=== PATIENT | male | born 1950 | race Caucasian/White ===

== ENCOUNTER 2018-06-23 14:26 | Observation (INO) | payer MEDICARE ==
[~2018-06-23] VITALS: Ht 195.6 cm; Wt 114.4 kg
--- OUTSIDE RECORDS SUMMARY | 2018-06-23 14:29 | XMS REPORT ---
Author Author [facility] Address Unknown Phone Unavailable Care Team Providers Care Newspaper Delivery Driver Name Role Phone RONNY YEPEZ Unavailable Unavailable FELIX OLMOS Unavailable Unavailable Problems This patient has no known problems. Allergies, Adverse Reactions, Alerts This patient has no known allergies or adverse reactions. Medications This patient has no known medications. Results Test Description Test Time Test Comments Text Results Atomic Results Result Comments CT, MAXILLOFACIAL AREA, WITHOUT IV CONTRAST 2018-06-23 13:20:00 FINAL REPORT Examination: CT Face without ContrastHistory: Nasal congestion. Sinus congestion.Comparison studies: None Technique:Axial images were obtained through the maxillofacial region. Coronal and sagittal reconstructions obtained from the axial data. Dose modulation, iterative reconstruction, and/or weight based adjustment of the mA/kV was utilized to reduce the radiation dose to as low as reasonably achievable. Intravenous contrast: None Findings: Soft tissues: No abnormalities. Bones: No fractures or bony abnormalities. Orbits: Globes: IntactExtra or intraconal abnormalities: None. Paranasal sinuses:Mild inflammatory mucosal thickening of the right ethmoid air cells.Mild inflammatory mucosal thickening of the anterior right sphenoid sinus which narrows the right sphenoethmoidal recess, which remains patent. Nasal cavity:Aerated right middle turbinate.Mild leftward curvature of the nasal septum (2 mm). IMPRESSION: 1.Mild inflammatory mucosal thickening of the right ethmoid air cells and right sphenoid sinus with patent right sphenoethmoidal recess. 2.Mild leftward curvature of the nasal septum (2 mm). Signed: Sierra Sharma Verified Date/Time: 06/23/2018 13:20:26 Reading Location: [facility] Room [address] [place] [address] UE EXAM 2018-01-09 10:43:00 Surgical Pathology Report Case: [id number] Authorizing Provider: Maylin Rick Ronny Collected: 01/08/2018 1033 Ord ering Location: [facility] Received: 01/08/2018 1133 SERVICES Pathologist: Jennifer Calloway MD Specimens: A) - Polyp, Colon - Cecum B) - Polyp, Colon - Right/Ascending A. LARGE BOWEL, CECUM, POLYPECTOMY: - TUBULAR ADENOMA B. COLON, RIGHT, POLYPECTOMY: - FECAL MATERIAL Signing Pathologist Direct Phone Line: [phone] signed by Jennifer Calloway MD on 01/09/2018 at 10:43 AMNZ/ew [id number] for colon cancer A. Cecum colon polyp. B. Right ascending colon polyp Specimen is received in two containers of formalin both labeled with the patient's information.Specimen A: Labeled "cecum colon polyp" consists of two fragments of juárez tissue measuring 0.3 and 0.8 cm, submitted in A1.Specimen B: Labeled "right ascending colon polyp" consists of multiple fragments of debris with no distinct tissue seen grossly. The debris ranges from 0.1 to 0.6 cm, submitted in B1. CG/ew A-B. No high-grade dysplasia or carcinoma is seen. TISSUE EXAM 2016-11-26 19:06:00 Surgical Pathology Report Case: [id number] Authorizing Provider: Felix Olmos MD Collected: 11/21/2016 1306 Ord ering Location: [facility] PERIOPERATIVE Received: 11/21/2016 1536 SERVICES Pathologist: Francesca Maldonado MD Specimen: Cyst, Perianal cyst PERINEAL REGION, BIOPSY: - SMOOTH MUSCLE AND GIANT CELL REACTIVE CHANGES, FOCALLY TO KERATINOUS MATERIAL, CONSISTENT WITH PERINEAL ABSCESS REGION CYST (SEE MICROSCOPIC DIAGNOSIS)MO/pl A definitive cyst or abscess is not noted. See microscopic description and diagnostic sections.[id number] abscess, perianal cystPerianal cystReceived in formalin labeled "mass" are four irregular, dark-red, rubbery, wrinkled fragments of soft tissue measuring 2.0 x 1.5 x 0.2 cm in aggregate. The specimen is entirely submitted in cassette A1. DB/ewThe perineal mass shows muscle, mostly smooth muscle, and connective tissue. There are some giant cells, focally surrounding some keratinous material consistent with perineal origin. No mucosal surface or atypia of any type is noted. A definitive abscess is not noted either. However, the reactive changes including the giant cells may be associated with a prior and/or contiguous abscess in this case.
--- OUTSIDE RECORDS SUMMARY | 2018-06-23 14:29 | XMS REPORT | Clinical Summary ---
Author Author SINAN [facility] Address Unknown Phone Unavailable Care Team Providers Care Mine Technician Name Role Phone Kota White MD PCP Allergies No Known Allergies Medications End Date Status Medication Sig Dispensed Refills Start Date Active valsartan (DIOVAN) 80 MG Take 80 mg by 0 tablet mouth daily. Active lovastatin (MEVACOR) 40 Take 40 mg by 0 MG tablet mouth nightly. Active omeprazole (PRILOSEC) 40 Take 40 mg by 0 MG capsule mouth daily. Active testosterone (ANDROGEL) 1 Place 1 0 % (50 mg/5 gram) GlPk packet onto topical gel the skin daily. Active gabapentin (NEURONTIN) Take 100 mg 0 100 MG capsule by mouth 3 (three) times daily. Active Problems Not on file Encounters Care Team Description Date Type Specialty Kota White MD 1, [facility] Room Chronic maxillary sinusitis 06/20/2018 Hospital Computed Tomography Encounter Kota White MD Chronic maxillary sinusitis (Primary Dx) 06/18/2018 Outside Orders Central Scheduling Cyndi June MD 01/08/2018 Anesthesia Event Maylin Rickbharat [place] COLONOSCOPY,POLYPECTOMY 01/08/2018 Surgery Rick Carlisle 01/08/2018 Hospital Encounter Resource, Oqmt Preadmit Phone 01/03/2018 Hospital Pre-Admission Testing Encounter after 06/22/2017 Social History Date Tobacco Use Types Packs/Day Years Used Never Smoker Smokeless Tobacco: Never Used Alcohol Use Drinks/Week oz/Week Comments Yes 42 Cans of 25.2 6 PK PER DAY beer Sex Assigned at Date Recorded Not on file Industry Job Start Date Occupation Not on file Not on file Not on file Travel End Travel History Travel Start No recent travel history available. Last Filed Vital Signs Time Taken Vital Sign Reading 01/08/2018 11:00 AM CDT Blood Pressure 145/75 01/08/2018 11:00 AM CDT Pulse 65 01/08/2018 11:00 AM CDT Temperature 36.4 C (97.6 F) 01/08/2018 11:00 AM CDT Respiratory Rate 10 01/08/2018 11:00 AM CDT Oxygen Saturation 99% - Inhaled Oxygen - Concentration 01/08/2018 8:00 AM CDT Weight 108.9 kg (240 lb 1.6 oz) 01/08/2018 8:00 AM CDT Height 195.6 cm (6' 5") 01/08/2018 8:00 AM CDT Body Mass Index 28.47 Plan of Treatment Not on file Procedures Comments Procedure Name Priority Date/Time Associated Diagnosis CT MAXILLOFACIAL WITHOUT Routine 06/20/2018 Chronic maxillary IV CONTRAST 3:00 PM SEAM HAMMERER sinusitis REPORT OF PROCEDURE - 01/08/2018 ENDOSCOPY URL 10:56 AM CDT TISSUE EXAM AP Routine 01/08/2018 10:33 AM CDT COLONOSCOPY,POLYPECTOMY 01/08/2018 Screening for colon 10:00 AM CDT cancer after 06/22/2017 Results * CT Maxillofacial without IV Contrast (06/20/2018 3:00 PM SEAM HAMMERER) Narrative Performed At FINAL REPORT TLabs Examination: CT Face without Contrast History: Nasal congestion. Sinus congestion. Comparison studies: None Technique: Axial images were obtained through the maxillofacial region. Coronal and sagittal reconstructions obtained from the axial data. Dose modulation, iterative reconstruction, and/or weight based adjustment of the mA/kV was utilized to reduce the radiation dose to as low as reasonably achievable. Intravenous contrast: None Findings: Soft tissues: No abnormalities. Bones: No fractures or bony abnormalities. Orbits: Globes: Intact Extra or intraconal abnormalities: None. Paranasal sinuses: Mild inflammatory mucosal thickening of the right ethmoid air cells. Mild inflammatory mucosal thickening of the anterior right sphenoid sinus which narrows the right sphenoethmoidal recess, which remains patent. Nasal cavity: Aerated right middle turbinate. Mild leftward curvature of the nasal septum (2 mm). IMPRESSION: 1.Mild inflammatory mucosal thickening of the right ethmoid air cells and right sphenoid sinus with patent right sphenoethmoidal recess. 2.Mild leftward curvature of the nasal septum (2 mm). Signed: Sierra Sharma MD Report Verified Date/Time:06/23/2018 13:20:26 Reading Location: [facility] Room [address] [place] [address] Procedure Note Interface, External Ris In - 06/23/2018 1:22 PM SEAM HAMMERER FINAL REPORT Examination: CT Face without Contrast History: Nasal congestion. Sinus congestion. Comparison studies: None Technique: Axial images were obtained through the maxillofacial region. Coronal and sagittal reconstructions obtained from the axial data. Dose modulation, iterative reconstruction, and/or weight based adjustment of the mA/kV was utilized to reduce the radiation dose to as low as reasonably achievable. Intravenous contrast: None Findings: Soft tissues: No abnormalities. Bones: No fractures or bony abnormalities. Orbits: Globes: Intact Extra or intraconal abnormalities: None. Paranasal sinuses: Mild inflammatory mucosal thickening of the right ethmoid air cells. Mild inflammatory mucosal thickening of the anterior right sphenoid sinus which narrows the right sphenoethmoidal recess, which remains patent. Nasal cavity: Aerated right middle turbinate. Mild leftward curvature of the nasal septum (2 mm). IMPRESSION: 1.Mild inflammatory mucosal thickening of the right ethmoid air cells and right sphenoid sinus with patent right sphenoethmoidal recess. 2.Mild leftward curvature of the nasal septum (2 mm). Signed: Sierra Sharma MD Report Verified Date/Time: 06/23/2018 13:20:26 Reading Location: [facility] Room [address] [place] [address] Performing Organization Address City/State/Zipcode Phone Number RIS * REPORT OF PROCEDURE - ENDOSCOPY URL (01/08/2018 10:56 AM CDT) Narrative Performed At * Tissue Exam (01/08/2018 10:33 AM CDT) Case Report Surgical Pathology [facility] Case: [id number] Authorizing Provider:Rick Carlisleected: 01/08/2018 1033 Ordering Location: [facility] ENDOSCOPY Received: 01/08/2018 1133 SERVICES Pathologist: Jennifer Calloway MD Specimens: A) - Polyp, Colon - Cecum B) - Polyp, Colon - Right/Ascending DIAGNOSIS A. LARGE BOWEL, CECUM, [facility] POLYPECTOMY: [facility] - TUBULAR ADENOMA B. COLON, RIGHT, POLYPECTOMY: - FECAL MATERIAL Signing Pathologist Direct Phone Line: [phone] CPT Code(s) NZ/ew [facility] [address] x2 [facility] CLINICAL HISTORY Screening for colon cancer [facility] SPECIMEN SOURCE A. Cecum colon polyp. B. Right [facility] ascending colon polyp [facility] GROSS DESCRIPTION Specimen is received in two [facility] containers of formalin both [facility] labeled with the patient's information. Specimen A: Labeled "cecum colon polyp" consists of two fragments of juárez tissue measuring 0.3 and 0.8 cm, submitted in A1. Specimen B: Labeled "right ascending colon polyp" consists of multiple fragments of debris with no distinct tissue seen grossly. The debris ranges from 0.1 to 0.6 cm, submitted in B1. CG/ew MICROSCOPIC DESCRIPTION A-B. No high-grade dysplasia [facility] or carcinoma is seen. [facility] Specimen Tissue - Polyp, Colon - Cecum Performing Organization Address City/State/Zipcode Phone Number [facility] [address] [place], [place] [id number] [facility] after 06/22/2017 Insurance Payer Benefit Subscriber ID Type Phone Address Plan / Group MEDICARE MEDICARE A xxxxxxxxxx Medicare B MCR SUPPLEMENT/INDIVIDUAL AARP/UNITE xxxxxxxxxxx Medigap D HEALTHCARE
[2018-06-23 15:32] LABS: BASOPHILS % 0.5 % (0.0-1.0); EOSINOPHILS # (AUTO) 0.1 (0.0-0.4); HEMATOCRIT 45.3 % (38.2-49.6); HEMOGLOBIN 15.3 g/dL (14.0-18.0); LYMPHOCYTES # (AUTO) 1.9 (1.0-3.2); LYMPHOCYTES % 30.2 % (18.0-39.1); MEAN CORPUSCULAR HEMOGLOBIN 31.4 pg (28-32); MEAN CORPUSCULAR HGB CONC 33.8 g/dL (31-35); MONOCYTES # (AUTO) 0.5 (0.2-0.8); MONOCYTES % 7.2 % (4.4-11.3); NEUTROPHILS # (AUTO) 3.8 (2.1-6.9); NEUTROPHILS % 59.6 % (38.7-80.0); PLATELET COUNT 213 x10e3/uL (140-360); RED BLOOD COUNT 4.87 x10e6/uL (4.3-5.7); RED CELL DISTRIBUTION WIDTH 12.5 % (11.7-14.4)
[2018-06-23 15:45] LABS: INR 0.85; PROTHROMBIN TIME 12.4 seconds (11.9-14.5)
[2018-06-23 15:46] LABS: PARTIAL THROMBOPLASTIN TIME 23.9 seconds (23.8-35.5)
[2018-06-23 15:56] LABS: ALANINE AMINOTRANSFERASE 43 IU/L (0-55); ALBUMIN 4.1 g/dL (3.5-5.0); ALBUMIN/GLOBULIN RATIO 1.3 (0.8-2.0); ALKALINE PHOSPHATASE 49 IU/L (40-150); ANION GAP 14.4 mmol/L (8-16); BLOOD UREA NITROGEN 14 mg/dL (7-26); BUN/CREATININE RATIO 14 (6-25); CALCIUM 9.7 mg/dL (8.4-10.2); CARBON DIOXIDE 24 mmol/L (22-29); CHLORIDE 105 mmol/L (98-107); EST GLOMERULAR FILTRATION RATE > 60 ML/MIN (60-); GLUCOSE 106 mg/dL (74-118); POTASSIUM 3.4 mmol/L (3.5-5.1); SODIUM 140 mmol/L (136-145)
--- NOTE | 2018-06-23 17:08 | Diagnostic Imaging Report ---
CT BRAIN WO HISTORY: Headache, vision changes COMPARISON: None. TECHNIQUE: Noncontrast axial scans were obtained from skull base to the vertex. Coronal and sagittal reconstructions obtained from the axial data. One or more of the following dose reduction techniques were used: Automated exposure control, adjustment of the mA and/or kV according to patient size, and/or utilization of iterative reconstruction technique. Beam hardening artifacts obscure some details. DISCUSSION: Scalp/Skull: Unremarkable. Brain sulci: Appropriate for patient's age. Ventricles: Normal in size and configuration. No hydrocephalus. Extra-axial spaces: No masses or fluid collections. Carotid siphon calcifications are present. Parenchyma: Focal loss of pagan-white differentiation at the right occipital pole may be due to subacute or acute ischemia. There is also focal hypodensity in the left subinsular region may be due to age indeterminate ischemia. Small focal hypodensities in the bilateral putamen may be due to prominent perivascular spaces. Mild periventricular white matter hypodensities are likely chronic microvascular ischemic changes. Otherwise, no masses, hemorrhage, or other large vascular territory acute infarct. Dural sinuses: No abnormal densities. Sellar/Suprasellar region: Intact. Skull base: Intact. Incidental findings: There is minimal mucosal thickening in the right ethmoid air cells IMPRESSION: 1. Findings suspicious for acute or subacute juxtacortical ischemia at the right occipital pole. 2. Focal left subinsular hypodensity may be due to age indeterminate ischemia. 3. Mild supratentorial chronic microvascular ischemic change. 4. Small bilateral putaminal hypodensities may be prominent perivascular spaces. Signed by: Dr. Sidney Bernard M.D. on 06/23/2018 5:05 PM
--- NOTE | 2018-06-23 17:14 | Diagnostic Imaging Report ---
CT MAXIO FAC/PARANAS WO HISTORY: Headache COMPARISON: Concurrent head CT TECHNIQUE: Axial CT images through the face were obtained without contrast. Coronal/sagittal reformations were created. One or more of the following dose reduction techniques were used: Automated exposure control, adjustment of the mA and/or kV according to patient size, and/or utilization of iterative reconstruction technique. DISCUSSION: Mildly displaced bilateral nasal bone fractures may be old. Otherwise, no acute fracture is seen. There are mild to moderate degenerative changes throughout the spine. Mild bilateral torus mandibularis is present. There are mild to moderate degenerative changes in the left temporomandibular joint. The orbits are intact. Intraorbital contents are grossly unremarkable. There is minimal mucosal thickening in the right ethmoid air cells, and right maxillary sinus. The paranasal sinuses are otherwise grossly clear. Please refer to concurrent head CT for intracranial findings. Mild bilateral carotid bulb calcifications are present. IMPRESSION: 1. Mildly displaced bilateral nasal bone fractures may be old. 2. Otherwise, no acute osseous abnormality. 3. Minimal right ethmoid air cell and right maxillary sinus mucosal thickening. Signed by: Dr. Sidney Bernard M.D. on 06/23/2018 5:10 PM
--- NOTE | 2018-06-23 20:48 | NUR ---
Vitals re-assessed at this time. Abnormal. Dr. Hawkins evaluating pt. Pt to be roomed in ER 8
[2018-06-23] MEDS ORDERED: ONDANSETRON HCL INJ 2MG/ML 2ML 2 MG/ML VIAL IV PRN (21:15)
[2018-06-23] MEDS ORDERED: HYDROCODONE/APAP 5MG-325MG TAB PO ONE (21:15)
[2018-06-23] MEDS ORDERED: MORPHINE SULFATE 2 MG/ML SYR 1ML IV PRN (21:15)
[2018-06-23] MEDS ORDERED: HYDROCODONE/APAP 5MG-325MG TAB ONE (21:20)
[2018-06-23] MEDS: SODIUM CHLORIDE 0.9% 1000ML 1,000 ML IV SCH (21:25)
--- OUTSIDE RECORDS SUMMARY | 2018-06-23 21:29 | XMS REPORT | Clinical Summary ---
Author Author [facility] Address Unknown Phone Unavailable Care Team Providers Care Tile Applicator Name Role Phone Kota White MD PCP [...] Date Type Specialty Kota White MD 1, [facility] [address] Room Chronic maxillary sinusitis 06/20/2018 Hospital [...] 06/20/2018 Chronic maxillary IV CONTRAST 3:00 PM SYS DIR sinusitis REPORT OF PROCEDURE - 01/08/2018 ENDOSCOPY URL 10:56 AM CDT TISSUE EXAM AP Routine 01/08/2018 10:33 AM CDT COLONOSCOPY,POLYPECTOMY 01/08/2018 Screening for colon 10:00 AM CDT cancer after 06/22/2017 Results * CT Maxillofacial without IV Contrast (06/20/2018 3:00 PM SYS DIR) Narrative Performed At FINAL REPORT Multigig Examination: CT Face without Contrast History: Nasal [...] MD Report Verified Date/Time:06/23/2018 13:20:26 Reading Location: [facility] [employer] Reading Room [address] [place] [address] Procedure Note Interface, External Ris In - 06/23/2018 1:22 PM SYS DIR FINAL REPORT Examination: CT Face without Contrast [...] Date/Time: 06/23/2018 13:20:26 Reading Location: [facility] [facility] Room [address] [place] [address] Performing Organization Address City/State/Zipcode Phone Number RIS * REPORT OF PROCEDURE - ENDOSCOPY URL (01/08/2018 10:56 AM CDT) Narrative Performed At * Tissue Exam (01/08/2018 10:33 AM CDT) Case Report Surgical Pathology [facility] Case: [id number] Authorizing Provider:Rick Carlisleected: 01/08/2018 1033 Ordering Location: [facility] ENDOSCOPY Received: 01/08/2018 1133 SERVICES Pathologist: Jennifer Calloway MD Specimens: A) - Polyp, Colon - Cecum B) - Polyp, Colon - Right/Ascending DIAGNOSIS A. LARGE BOWEL, CECUM, [facility] POLYPECTOMY: [facility] - TUBULAR ADENOMA B. COLON, RIGHT, POLYPECTOMY: - FECAL MATERIAL Signing Pathologist Direct Phone Line: [phone] CPT Code(s) NZ/ew [facility] [address] x2 [facility] CLINICAL HISTORY Screening for colon cancer [facility] SPECIMEN SOURCE A. Cecum colon polyp. B. Right [facility] ascending colon polyp [facility] GROSS DESCRIPTION Specimen is received in two [facility] containers of formalin both [facility] labeled with the patient's information. Specimen [...] CG/ew MICROSCOPIC DESCRIPTION A-B. No high-grade dysplasia [facility] or carcinoma is seen. [facility] Specimen Tissue - Polyp, Colon - Cecum Performing Organization Address City/State/Zipcode Phone Number [facility] [address] [place], [place] [id number] MEDICAL [facility]ENTER after 06/22/2017 Insurance Payer Benefit Subscriber ID Type Phone Address Plan / Group MEDICARE MEDICARE A xxxxxxxxxx Medicare B MCR SUPPLEMENT/INDIVIDUAL AARP/UNITE xxxxxxxxxxx Medigap D HEALTHCARE
[2018-06-23] MEDS ORDERED: MORPHINE SULFATE INJ 4 MG/ML INJ 1ML IV PRN (21:30)
[2018-06-23] MEDS ORDERED: POTASSIUM CHLORIDE 20 MEQ TAB CR PO STA (23:35)
[2018-06-23 23:45] VITALS: BP 152/70
--- NOTE | 2018-06-23 23:45 | NUR ---
patient is a new admit that arrived via wheelchair. patient is awake and talking. patient has been helped into the bed. bed is in the lowest position and call albarado is within reach. will continue to monitor patient.
[2018-06-24] VITALS (7 sets, daily range): BP systolic 136–163; BP diastolic 64–75
[2018-06-24] MEDS ORDERED: DIOVAN80 MG PO (03:22)
[2018-06-24] MEDS ORDERED: LOVASTATIN40 MG PO (03:22)
[2018-06-24] MEDS ORDERED: MELOXICAM7.5 MG PO (03:22)
[2018-06-24] MEDS ORDERED: GABAPENTIN300 MG PO (03:22)
[2018-06-24 05:25] LABS: BASOPHILS % 0.5 % (0.0-1.0); EOSINOPHILS # (AUTO) 0.1 (0.0-0.4); EOSINOPHILS % 2.5 % (0.0-6.0); HEMATOCRIT 39.2 % (38.2-49.6); HEMOGLOBIN 13.1 g/dL (14.0-18.0); LYMPHOCYTES # (AUTO) 2.5 (1.0-3.2); LYMPHOCYTES % 43.8 % (18.0-39.1); MEAN CORPUSCULAR HEMOGLOBIN 31.4 pg (28-32); MEAN CORPUSCULAR HGB CONC 33.4 g/dL (31-35); MONOCYTES # (AUTO) 0.5 (0.2-0.8); MONOCYTES % 9.2 % (4.4-11.3); NEUTROPHILS # (AUTO) 2.5 (2.1-6.9); NEUTROPHILS % 43.5 % (38.7-80.0); PLATELET COUNT 198 x10e3/uL (140-360); RED BLOOD COUNT 4.17 x10e6/uL (4.3-5.7); RED CELL DISTRIBUTION WIDTH 12.7 % (11.7-14.4)
[2018-06-24 05:36] LABS: CREATINE KINASE MB 0.3 ng/mL (0-5.0)
[2018-06-24 06:16] LABS: CREATINE KINASE MB 0.3 ng/mL (0-5.0)
--- NOTE | 2018-06-24 06:34 | NUR ---
Consulted physician has been notified of routine consultation. physician will be in to see patient later in the day.
[2018-06-24 06:38] LABS: ANION GAP 10.8 mmol/L (8-16); BLOOD UREA NITROGEN 16 mg/dL (7-26); BUN/CREATININE RATIO 18 (6-25); CALCIUM 8.5 mg/dL (8.4-10.2); CARBON DIOXIDE 27 mmol/L (22-29); CHLORIDE 109 mmol/L (98-107); CHOL/HDL RATIO 4.4 (3.9-4.7); CHOLESTEROL 164 MD/DL (0-199); CREATININE, SERUM 0.88 mg/dL (0.72-1.25); EST GLOMERULAR FILTRATION RATE > 60 ML/MIN (60-); GLUCOSE 108 mg/dL (74-118); HDL CHOLESTEROL 37 MG/DL (40-60); LDL CHOLESTEROL 92 MG/DL (60-130); POTASSIUM 4.8 mmol/L (3.5-5.1); SODIUM 142 mmol/L (136-145); TRIGLYCERIDES 176 MG/DL (0-149)
[2018-06-24] MEDS: SODIUM CHLORIDE 0.9% 1000ML 1,000 ML IV SCH ×3 (08:06→19:54)
[2018-06-24] MEDS: ASPIRIN 81 MG ENTERIC COATED PO SCH (09:43)
--- NOTE | 2018-06-24 09:43 | NUR ---
PT RECEIVED SITTING UP IN BED, AA/O X3. NO C/O AT PRESENT. REPORTS VISION IS DISTURBED BUT DENIES PAIN, HEADACHE, OR WEAKNESS. ASSESSMENT COMPLETE, VSS. PT HAS NO IV IN PLACE, MD AWARE. DISCUSSED PLAN FOR THE DAY. Addendum: 06/24/18 at 1314 by Robbie Lowery RN ERROR, PT HAS IV TO LAC
--- NOTE | 2018-06-24 11:27 | NUR ---
SOCIAL WORK INITIAL ASSESSMENT Rougher Operator to bedside to discuss plan of care with patient/family. CM/SW role and care transitions discussed. Anticipated discharge plan discussed along with duration of care. CM/SW discussed patients right to make decisions in care. CM/SW work hours given. Patient lives: IN OWN HOUSE WITH SON Admit/Transfer: VIA HOME POA/Emergency contact: [place] [phone] Current/Previous Home Health: NONE PCP/Follow-up Care: CATHERINE AT [facility] Current/Previous DME: NONE Other Services: NONE Employment Status: RETIRED Areas of Concerns: NONE Referral Needs: NONE Education Needs: NONE IMM/JAY given and signed (if applicable): JAY Goal for discharge: RETURN HOME INDEPENDENTLY CM/SW left business card at the bedside with contact information. Name and number was also written on the patients whiteboard. Patient verbalized understanding of discussion. CM will follow-up with ongoing discharge and transition of care needs.
[2018-06-24] MEDS ORDERED: LORAZEPAM INJ 2 MG/ML VIAL IV ONE (12:15)
--- NOTE | 2018-06-24 12:15 | NUR ---
PT SEEN BY DR RANKIN, NEW ORDERS NOTED.
--- NOTE | 2018-06-24 12:30 | NUR ---
PT DOWN FOR MRI OF BRAIN
--- NOTE | 2018-06-24 12:40 | NUR ---
ST NOTE: Spoke with ESSIE Hurd. Pt in MRI and will be there for some time. Order acknowledged for Speech Language Evaluation, will be completed 06-25-18. Pt on diet with cardiac restrictions.
[2018-06-24] MEDS: GABAPENTIN 300 MG CAP PO SCH ×3 (13:29→21:39)
[2018-06-24] MEDS: ACETAMINOPHEN 325 MG TAB PO PRN ×2 (13:30→19:13)
[2018-06-24 14:27] LABS: CREATINE KINASE MB 0.4 ng/mL (0-5.0)
--- NOTE | 2018-06-24 14:33 | Diagnostic Imaging Report ---
MRI BRAIN WO HISTORY: Head and face CT 06/23/2018 COMPARISON: None. TECHNIQUE: Sagittal T2, axial T2, axial T1, axial T2/FLAIR, axial gradient echo (or susceptibility weighted), coronal T2/FLAIR, and axial diffusion weighted MR images of the brain were obtained without contrast. Susceptibility and alias artifacts obscure some details. DISCUSSION: Scalp/bone marrow: Unremarkable. Brain sulci: Appropriate for patient's age. Ventricles: Normal in size and configuration. No hydrocephalus. Extra-axial spaces: No masses or fluid collections. Parenchyma: Juxtacortical T2/FLAIR hyperintensity at the right occipital pole may be associated with mild diffusion restriction. This is in the area of hypodensity seen on prior CT. Similar, questionable additional smaller areas of mild juxtacortical diffusion restriction (with focal T2/FLAIR hyperintensity) are seen along the right inferior temporal gyrus, left precuneus (left parietal lobe), left occipital convexity, and right cerebellum. No other definite diffusion restricting abnormalities are seen. A few small T2/FLAIR hyperintense foci throughout the supratentorial white matter are likely chronic microvascular ischemic changes. There is an old small left subinsular lacunar infarct. Linear T2/FLAIR hyperintensity along the left posterior centrum semiovale may be a developmental venous anomaly Vessels: Normal flow voids in major arteries and veins. Sellar/Suprasellar region: No abnormalities. Craniocervical junction: No abnormalities. Incidental findings: None. IMPRESSION: 1. No definite evidence for acute ischemia. 2. 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 3. Possible additional multifocal small subacute to chronic cortical infarcts along the right inferior temporal gyrus, left precuneus, left occipital convexity, and right cerebellum. 4. Minimal supratentorial chronic microvascular ischemic change. Old small left subinsular lacunar infarct. 5. Suspected small left posterior centrum semiovale developmental venous anomaly. Follow-up brain MRI (without and with contrast) in 2-3 months is recommended. Signed by: Dr. Sidney Bernard M.D. on 06/24/2018 2:29 PM
--- NOTE | 2018-06-24 14:38 | Diagnostic Imaging Report ---
MRA NECK WO, MRA HEAD WO HISTORY: Headache COMPARISON: Concurrent brain MRI, head CT 06/23/2018 TECHNIQUE: Axial 2D cervical, and axial 3D intracranial [id number] MRA images were obtained without contrast. Maximum intensity projection images were created. If present, any cervical carotid stenosis will be measured as a percentage relative to the sycuan artery distal to the stenosis. Motion and noise artifacts obscure some details. FINDINGS: CERVICAL MRA: Right Carotid: No gross flow abnormalities. Left Carotid: No flow gross abnormalities. Right vertebral artery: No gross flow abnormalities. Left vertebral artery: No gross flow abnormalities. INTRACRANIAL MRA: Carotid arteries: No flow abnormalities in the intracranial internal carotid arteries. Normal A1 and M1 segments. Vertebrobasilar Circulation: Right vertebral artery: No flow abnormalities. Left vertebral artery: No flow abnormalities. Basilar artery: No flow abnormalities. Posterior cerebral arteries: No flow abnormalities. Normal Variants: AComA: Visualized. PComA: Not visualized. Vertebral arteries: Right slightly dominant. IMPRESSION: No cervical or intracranial CTA abnormalities Signed by: Dr. Sidney Bernard M.D. on 06/24/2018 2:35 PM
--- NOTE | 2018-06-24 14:38 | Diagnostic Imaging Report ---
MRA NECK WO, MRA HEAD WO HISTORY: Headache COMPARISON: Concurrent brain MRI, head CT 06/23/2018 TECHNIQUE: Axial 2D cervical, and axial 3D intracranial gqki-is-tjospj MRA images were obtained without contrast. Maximum intensity projection images were created. If present, any cervical carotid stenosis will be measured as a percentage relative to the [place] artery distal to the stenosis. Motion and noise artifacts obscure some details. FINDINGS: CERVICAL MRA: Right Carotid: No gross flow abnormalities. Left Carotid: No flow gross abnormalities. Right vertebral artery: No gross flow abnormalities. Left vertebral artery: No gross flow abnormalities. INTRACRANIAL MRA: Carotid arteries: No flow abnormalities in the intracranial internal carotid arteries. Normal A1 and M1 segments. Vertebrobasilar Circulation: Right vertebral artery: No flow abnormalities. Left vertebral artery: No flow abnormalities. Basilar artery: No flow abnormalities. Posterior cerebral arteries: No flow abnormalities. Normal Variants: AComA: Visualized. PComA: Not visualized. Vertebral arteries: Right slightly dominant. IMPRESSION: No cervical or intracranial CTA abnormalities Signed by: Dr. Sidney Bernard M.D. on 06/24/2018 2:35 PM
--- NOTE | 2018-06-24 14:39 | Consultation ---
DATE OF CONSULTATION: June 24, 2018 NEUROLOGY CONSULT NOTE HISTORY OF PRESENT ILLNESS: Mr. Almaraz is a 68-year-old right-hand dominant man with past medical history significant for hypertension and hyperlipidemia, admitted to [facility] on June 23, 2018 with a subacute stroke. Approximately 45 days prior to admission, the patient experienced a sudden onset of visual disturbance. Initially, Mr. Almaraz describes the visual disturbance as "not being able to see things towards the left side." The patient endorses small dots of light towards the left visual field as well as photophobia; however, Mr. Almaraz reports being able to see items in his left visual field after he "refocuses my vision." The patient does not report dysarthria, aphasia, facial droop, hemiparesis, hemihypoesthesia, poor balance, gait disturbance, dizziness, or confusion. Mr. Almaraz does report a headache associated with the above described visual disturbance. The presence of a headache convinced the patient his symptoms were due to an underlying sinus infection. Over the past several weeks, Mr. Almaraz has seen a primary care physician on 3 separate occasions. He has undergone 3 courses of antibiotic treatment for a "sinus infection;" however, none of his symptoms have improved. The above described symptoms reportedly worsened several days ago. Therefore, Mr. Almaraz presented to the emergency center at [facility] on the evening of June 23, 2018 for further evaluation. Upon admission to the emergency center, the patient was afebrile with a blood pressure of 164/94 mmHg and a pulse of 90 beats per minute. His neurological examination was documented as being nonfocal. While in the emergency center, Mr. Almaraz underwent a CT of the brain without contrast, which revealed subacute ischemia in the right occipital pole, suspicious for an ischemic stroke. Age-indeterminate ischemia was seen in the left subinsular region as well as the bilateral putamina. Mr. Almaraz was admitted to [facility] under observation status for further evaluation and treatment of his symptoms. The patient does not report experiencing similar symptoms previously. To his knowledge, he has not previously had a stroke. The patient is not taking aspirin or other antiplatelet or anticoagulant medications on a routine basis at present. REVIEW OF SYSTEMS: Blurred vision, headache, possible dizziness. Otherwise, a 12-point review of systems is negative. PAST MEDICAL HISTORY: Hypertension, hyperlipidemia, chronic low back pain/sciatica. PAST SURGICAL HISTORY: Appendectomy, left knee replacement, right ulnar nerve transposition, surgery for testicular hydrocele. PAST HOSPITALIZATIONS: Surgeries/procedures as listed. FAMILY MEDICAL HISTORY: The patient's paternal and maternal grandparents are . Their medical histories are unknown. The patient's father is from complications during carotid artery surgery. His mother is from lung cancer. Mr. Almaraz had a sister who is from lung cancer. The patient has 2 children, a son and a daughter, both of whom are living. The son had a stroke at age 26 years and continues to have complications from that stroke. The patient's daughter is healthy. SOCIAL HISTORY: Mr. Almaraz is single. He is retired. The patient does not report current or prior tobacco use. He does endorse a prior history of heavy alcohol use. At present, he drinks a 6-pack of beer daily. Mr. Almaraz does report occasional marijuana use. HOME MEDICATIONS 1. Gabapentin 300 mg by mouth 3 times daily. 2. Lovastatin 40 mg by mouth daily. 3. Meloxicam 15 mg by mouth daily as needed. 4. Valsartan 80 mg by mouth daily. ALLERGIES: NO KNOWN DRUG ALLERGIES. NO KNOWN FOOD ALLERGIES. NO KNOWN ALLERGIES TO LATEX. NO KNOWN ALLERGIES TO IODINE OR OTHER CONTRAST MATERIALS. PHYSICAL EXAMINATION VITAL SIGNS: Height 77 inches, weight 245 pounds, BMI 29.1 kg/m2. Blood pressure 158/75 mmHg, pulse 61 beats per minute, respiratory rate 16 breaths per minute, oxygen saturation 100% on room air. GENERAL: The patient is awake and alert, does not appear distressed. Overweight. HEENT: Normocephalic, atraumatic. Pupils are equal, round, and reactive to light. Moist mucous membranes. NECK: Supple. No appreciable thyromegaly. No appreciable carotid bruits. CARDIOVASCULAR: S1, S2, regular rate and rhythm. No murmurs, rubs, or gallops. RESPIRATORY: Clear to auscultation bilaterally. No wheezes, rhonchi, or rales. EXTREMITIES: The skin is warm and dry. No clubbing, cyanosis, or edema. The posterior tibial and dorsalis pedis pulses are 2+ and symmetric. SKIN: No rashes or lesions. NEUROLOGIC: Memory/Attention: The patient is awake and alert, oriented to person, place, time and situation. Cranial Nerves: Cranial nerve I - not tested. Cranial nerve II, III, IV, and - pupils are equal and round, react briskly to light (from 4 mm to 2 mm). Extraocular movements intact. No nystagmus. Cranial nerve V - sensation to light touch and pinprick is intact in the bilateral V1 through V3 distributions. Strength of the temporalis and masseter muscles is within normal limits. Cranial nerve VII - the face is symmetric as are all facial movements. Strength is within normal limits. Cranial nerve VIII - hearing is intact to finger rub bilaterally. Cranial nerve IX, X - the soft palate elevates equally and symmetrically. Cranial nerve XI - normal strength of the bilateral sternocleidomastoid and trapezius muscles. Cranial nerve 12 - the tongue protrudes midline and moves symmetrically from side to side. Strength: Bulk is normal. Strength is 5/5 in the bilateral deltoids, biceps, triceps, wrist flexors and extensors, finger flexors and extensors, intrinsic hand muscles, hip flexors, knee flexors and extensors, ankle dorsiflexion and plantarflexion, and intrinsic foot muscles. Tone is normal. DTRs: Deep tendon reflexes are 1+ and symmetric at the triceps, biceps, brachioradialis, patellas, and Achilles. Plantar responses are flexor bilaterally. Sensation: Sensation is intact to light touch and pinprick in both arms and both legs. Cerebellar: Lisivd-aslm-ecsjsl movements are intact without dysmetria or other impairment. Initially, there appears to be dysmetria with heel-smith movements on the left, but this does improve with repetition. Heel-smith movements are intact without dysmetria or other impairment on the right. Gait: Deferred. Speech: Spontaneous speech is normal without appreciable dysarthria or aphasia. Repetition is intact. Involuntary Movements: None. Pronator Drift: None. LABORATORY DATA: The most recent basic metabolic panel is significant only for an elevated chloride of 109. A liver function panel drawn on June 23, 2018 is within normal limits. Cardiac enzymes are negative x2. C-reactive protein 1.8. Total cholesterol 164, triglycerides 176, LDL cholesterol 92, HDL cholesterol 37. CBC with differential and platelets reveals a white blood cell count of 5.68 with a right shift with 43.5% neutrophils, 43.8% lymphocytes, 9.2% monocytes, 2.5% eosinophils, and 0.5% basophils. The hemoglobin and hematocrit are 13.1 and 39.2, respectively. The platelet count is 198. The coagulation profile is within normal limits. DIAGNOSTIC STUDIES: CT of the face, 06/23/2018: 1. Mildly displaced bilateral nasal bone fractures, maybe old. 2. Otherwise, no acute osseous abnormality. 3. Minimal right ethmoid air cell and right maxillary sinus mucosal thickening. CT of the brain without contrast, 06/23/2001: On my review, there appears to be subacute ischemia in the right occipital pole. There is age-indeterminate ischemia in the left subinsular region as well as the bilateral putamina. Cerebral volumes are appropriate for age. There are findings compatible with tuqg-sh-ggljmeqi chronic small vessel ischemic disease. ASSESSMENT AND PLAN: Mr. Almaraz is a 68-year-old right-hand dominant man with vascular risk factors, admitted to [facility] on June 23, 2018 with subacute visual disturbance, probably secondary to an ischemic stroke in the right posterior cerebral artery distribution. However, given the appearance of age-indeterminate ischemia in other vascular regions, an embolic etiology is under consideration. The patient's neurological examination, including visual jordan, is nonfocal. Mr. Almaraz's laboratory data and other diagnostic studies have been reviewed and are documented above. RECOMMENDATIONS: As follows: 1. A MRI of the brain without contrast has been ordered and is pending. 2. A MRA of the brain and neck without contrast has been ordered and is pending. 3. An echocardiogram has been ordered and is pending. 4. An electrocardiogram will be ordered. 5. A hemoglobin A1c will be ordered. 6. Continue aspirin 81 mg by mouth daily for stroke prophylaxis for the present time. 7. Allow permissive hypertension pending the results of vessel imaging. Prior to discharge, the patient's goal blood pressure is less than 140/90 mmHg. Following discharge, the patient's goal blood pressure is less than 130/70 mmHg. 8. The patient's total cholesterol is at goal of less than 200. His LDL is 92, which is above the recommended goal of less than 70. Lovastatin will be discontinued. This medication will be replaced with atorvastatin 80 mg by mouth at bedtime daily. Recheck a lipid panel in the 8 weeks. 9. Follow up the results of hemoglobin A1c. The patient's goal hemoglobin A1c is less than 7.0. Tight glycemic control is recommended while the patient is in the hospital. 10. Speech and physical therapy consultations will be ordered. 11. GI prophylaxis with Pepcid 20 mg by mouth twice daily with meals. DVT prophylaxis with Lovenox 40 mg subcutaneously daily. 12. For chronic low back pain/sciatica - continue treatment with gabapentin 300 mg by mouth 3 times daily. 13. Defer treatment of the remaining medical comorbidities to the primary and other services following the patient. Thank you for this consultation. I will continue to follow the patient while he remains in the hospital. TIME SPENT: 70 minutes. Job#: [id number] SANDOR MARTINO
[2018-06-24] MEDS: ENOXAPARIN SOD INJ 40 MG/0.4 ML SYR SC SCH (17:15)
[2018-06-24] MEDS: FAMOTIDINE 20 MG TAB PO SCH (17:15)
[2018-06-24] MEDS ORDERED: ATORVASTATIN 20 MG TAB PO SCH (21:00)
[2018-06-24] MEDS: ATORVASTATIN 40 MG TAB PO SCH (21:39)
[2018-06-25] VITALS (10 sets, daily range): BP systolic 128–159; BP diastolic 63–75
[2018-06-25] MEDS: SODIUM CHLORIDE 0.9% 1000ML 1,000 ML IV SCH ×3 (06:03→23:53)
--- NOTE | 2018-06-25 06:55 | NUR ---
Walking rounds done and report taken from night. Call albarado within reach.
[2018-06-25] MEDS: ASPIRIN 81 MG ENTERIC COATED PO SCH (09:06)
[2018-06-25] MEDS: GABAPENTIN 300 MG CAP PO SCH ×3 (09:06→20:33)
[2018-06-25] MEDS: FAMOTIDINE 20 MG TAB PO SCH ×2 (09:06→17:30)
[2018-06-25] MEDS: ACETAMINOPHEN 325 MG TAB PO PRN ×2 (09:43→13:30)
--- NOTE | 2018-06-25 12:00 | NUR ---
Spoke with Dr. Retana regarding DC plan. He stated pt is good to discharge from his standpoint, but need to be cleared from Dr. Bautista. Awaiting rounds by Dr. Bautista.
[2018-06-25] MEDS ORDERED: DOCUSATE SODIUM 100 MG CAP PO NR (13:00)
[2018-06-25] MEDS ORDERED: HYDROCORTISONE SOD SUCCINATE 250 MG VIAL IV SCH (17:00)
--- NOTE | 2018-06-25 17:02 | Consultation ---
DATE OF CONSULTATION: June 25, 2018 CARDIOLOGY CONSULTATION REASON FOR CONSULTATION: Evaluate cardiac status. HISTORY: This is a 68-year-old gentleman who is known with hypertension and hyperlipidemia. Patient is very physically active. All his problems started around Thanksgiving time when he had sudden loss of the left visual jordan. Since that time, he feels like some area he cannot see through. This does not improve. Of note, he is having also headaches with these episodes. He got at least 3 to 4 episodes of severe headache. However, the vision problem is stable. He was seen by his PCP. He had 3 courses of antibiotics as well as steroids. Treated as "sinusitis." Despite all of that, he did not improve. He continued to have left visual field problem, and he cannot see well. He is very unhappy about that. He had a CT scan done by his physician and MRI, and he is supposed to have the results but he continued not to improve. Patient got frustrated, and suddenly he called his physician. He still did not get his results, so he went to the emergency room and was admitted for further management. Workup at this institution showed abnormal finding on the MRI consistent with right occipital infarction and several other areas of chronic changes involving the left parietal lobe, left occipital convexity and right cerebellum as well as the right inferior temporal gyrus. An echocardiogram was done. Primary report was suggestive of possible vegetation on the mitral valve. However, the patient denied having any fever or any chills. He did have a sinus infection and got treatment. The echo report read by Dr. Felix showed a nodular density on the anterior mitral valve leaflet with normal left ventricle in size and in function, normal chamber size and mild left ventricular hypertrophy. That is the official reading. I reviewed the echocardiogram. The echocardiogram is of poor quality. Cardiac consultation is obtained based on this finding. Of note during admission, the patient did not have any arrhythmia. Furthermore, he denied having any cardiovascular system complaint; i.e., chest pain, shortness of breath on exertion, easy fatigability, orthopnea, paroxysmal nocturnal dyspnea, etc. REVIEW OF SYSTEMS: Extensive to all systems. Will be summarized for clarity. GENERAL: No fever. No chills. HEENT: Patient having repeated headache. Diagnosed with sinusitis. Had 3 courses of antibiotics as well as steroids. PULMONARY: No cough. No hemoptysis. CARDIAC: As per above. No active symptoms. GI: No hematemesis. No melena. : No hematuria. No dysuria. MUSCULOSKELETAL: No aches. No pain, with the exception of back problem and "sciatica" affecting both legs. NEUROLOGIC: As per acute illness. Mainly, the vision problem and repeated headaches. PAST MEDICAL HISTORY 1. Hypertension. 2. Hyperlipidemia. 3. Chronic low back pain and sciatica. 4. Appendectomy. 5. Left knee replacement. 6. Right ulnar nerve transposition surgery. 7. Surgery for testicular hydrocele. SOCIAL HISTORY: He is a . He is retired from [employer] He is nonsmoker. He rarely drinks alcohol. HOME MEDICATIONS 1. Gabapentin 300 mg t.i.d. 2. Lovastatin 40 mg a day. 3. Meloxicam 15 mg per day. 4. Prilosec 40 mg a day. 5. Valsartan 80 mg a day. ALLERGIES: NONE. FAMILY HISTORY: The patient's father after or during carotid artery surgery. Mother of lung cancer. Sister of lung cancer. Brother had a problem with his neuro development during , and he at age 37. One son had CVA at a young age, at age 26, attributed to use of ephedra. The patient's daughter is healthy. PHYSICAL EXAMINATION VITALS: Height reported 6 feet 5 inches. The patient looks shorter to me. Weight of 252 pounds. Blood pressure 140/70. Heart rate of 80. Respiratory rate of 18. HEENT: Pupils are equal, round, reactive. NECK: No elevation of jugular venous pulsation. No bruit. CHEST: Clear to auscultation and percussion. HEART: PMI at 5th left intercostal space. Normal 1st and 2nd heart sounds. No additional murmur. No gallop. ABDOMEN: Soft with good bowel sounds. EXTREMITIES: No cyanosis. No clubbing. No edema. NEUROLOGIC: Patient is able to move his extremities at ease. Although he complained of vision abnormality in the middle of the eye, there is inability to see like a shadow. Visual jordan not examined but good peripheral vision. LAB DATA: Sodium 142, potassium 4.8, BUN 16, creatinine 0.9. Glucose of 108. White blood cell count of 5.7; hemoglobin 13.1; hematocrit 39%; platelet count 198,000. Sedimentation rate only of 8. Triglycerides of 176, total cholesterol of 164, HDL of 37, LDL of 72. Echo showed poor quality. The official report showed mild nodular calcification of the anterior leaflet. MRI is very abnormal showing definite right occipital infarction and evidence of multiple lesions as per report. IMPRESSION AND PLAN 1. Vision abnormality with sudden onset around Thanksgiving time. 2. Repeated episodes of headache. 3. Very abnormal MRI. 4. Echocardiogram showed abnormality on the anterior mitral valve leaflet. 5. There are no stigmata for endocarditis. 6. Hypertension. 7. Hyperlipidemia. Cardiac-suresh I will ask Dr. Valera to do a JESSENIA on this patient to further evaluate his cardiac structure. I discussed the case with Dr. Bautista. If embolic stroke is suggested and confirmed by this MRI, anticoagulation. Regarding his headache and his neurological symptoms, I will defer that to Dr. Bautista. I will check the blood culture. I will check sedimentation rate. Further recommendations after doing the transesophageal echocardiogram. Presentation, symptoms and the presence of headache in addition to abnormal finding on the MRI are worrisome to me. Will discuss further steps with the MDs and with the patient. Job#: [id number] GRIS
[2018-06-25] MEDS: ENOXAPARIN SOD INJ 40 MG/0.4 ML SYR SC SCH (17:30)
[2018-06-25] MEDS: DOCUSATE SODIUM 100 MG CAP PO SCH (17:30)
[2018-06-25] MEDS: HYDROCORTISONE SOD SUCCINATE 100 MG VIAL IV SCH (17:30)
[2018-06-25] MEDS: PROMETHAZINE 25MG/ NS 50ML (IV) IV SCH ×2 (17:30→23:54)
[2018-06-25] MEDS: VALPROATE SOD INJ 500 MG in SODIUM CHLORIDE 0.9% 100 ML 100 ML IV SCH (18:44)
--- NOTE | 2018-06-25 19:01 | NUR ---
Walking rounds done and report given to oncoming shift. Call albarado within reach.
--- NOTE | 2018-06-25 19:05 | NUR ---
Received pt in bed. No S/S of resp distress. Denies pain at this time. Call light within reach and instructed to call for assistance.
[2018-06-25] MEDS: ATORVASTATIN 40 MG TAB PO SCH (20:33)
[2018-06-25] MEDS ORDERED: PROMETHAZINE 25MG/ NS 50ML (IV) IV SCH (23:00)
[2018-06-26] MEDS: HYDROCORTISONE SOD SUCCINATE 100 MG VIAL IV SCH (00:02)
[2018-06-26] MEDS: VALPROATE SOD INJ 500 MG in SODIUM CHLORIDE 0.9% 100 ML 100 ML IV SCH (00:02)
[2018-06-26 04:40] VITALS: BP 133/66
[2018-06-26] MEDS: SODIUM CHLORIDE 0.9% 1000ML 1,000 ML IV SCH ×3 (05:03→21:00)
[2018-06-26] MEDS: FAMOTIDINE 20 MG TAB PO SCH ×2 (07:30→15:58)
[2018-06-26 08:00] VITALS: BP 134/64
--- NOTE | 2018-06-26 08:19 | NUR ---
Spoke to Dr. Coleman regarding planned JESSENIA. Dr. Coleman will page Dr. Anna Valera
[2018-06-26] MEDS: DOCUSATE SODIUM 100 MG CAP PO SCH ×2 (09:00→16:26)
[2018-06-26] MEDS: GABAPENTIN 300 MG CAP PO SCH ×3 (09:00→21:00)
--- NOTE | 2018-06-26 09:45 | NUR ---
Dr. Valera paged to clarify if patient will have JESSENIA today.
[2018-06-26] MEDS ORDERED: BENZOCAINE 20% SPR 60 ML CAN ONE (12:08)
[2018-06-26] MEDS ORDERED: SODIUM CHLORIDE 0.9% 1000ML 1,000 ML ONE (12:08)
--- NOTE | 2018-06-26 12:09 | NUR ---
Patient off unit to JESSENIA with Cath, RN.
[2018-06-26 15:33] VITALS: BP 136/79
[2018-06-26] MEDS: VALSARTAN 80 MG TAB PO SCH (15:58)
[2018-06-26] MEDS: APIXABAN 5 MG TABLET PO SCH (16:26)
[2018-06-26 16:29] VITALS: BP 153/67
[2018-06-26] MEDS ORDERED: PROPOFOL IV EMULSION 10 MG/ML 20 ML VIAL ONE (17:27)
[2018-06-26] MEDS ORDERED: MIDAZOLAM HCL 5 MG/ML VIAL ONE (17:55)
[2018-06-26] MEDS ORDERED: FENTANYL CITRATE/PF 100MCG/2 ML INJ ONE (17:55)
--- NOTE | 2018-06-26 19:10 | NUR ---
Report given to oncoming nurse. Call albarado within reach.
[2018-06-26 20:15] VITALS: BP 152/69
[2018-06-26] MEDS: ATORVASTATIN 40 MG TAB PO SCH (21:00)
[2018-06-27 00:45] VITALS: BP 130/63
[2018-06-27] MEDS: SODIUM CHLORIDE 0.9% 1000ML 1,000 ML IV SCH (04:00)
[2018-06-27 05:15] VITALS: BP 149/70
[2018-06-27 05:31] VITALS: BP 130/63
--- NOTE | 2018-06-27 07:05 | NUR ---
WALKING ROUNDS DONE AND REPORT RECEIVED. PT C/O HEADACHE 5/10 SCALE. PRN TYLENOL GIVEN. POC DISCUSSED. PT INSTRUCTED TO CALL FOR ASSISTANCE NEEDED AND VERBALIZED UNDERSTANDING. CALL SO WITHIN REACH.
[2018-06-27 08:00] VITALS: BP 130/63
[2018-06-27 08:27] VITALS: BP 141/72
[2018-06-27] MEDS: VALSARTAN 80 MG TAB PO SCH (09:30)
[2018-06-27] MEDS: GABAPENTIN 300 MG CAP PO SCH (09:30)
[2018-06-27] MEDS: DOCUSATE SODIUM 100 MG CAP PO SCH (09:30)
[2018-06-27] MEDS: APIXABAN 5 MG TABLET PO SCH (09:30)
[2018-06-27] MEDS: FAMOTIDINE 20 MG TAB PO SCH (09:30)
[2018-06-27 11:59] VITALS: BP 162/74
[2018-06-27] MEDS ORDERED: ATORVASTATIN CA80 MG PO (13:34)
[2018-06-27] MEDS ORDERED: GABAPENTIN100 MG PO (13:35)
[2018-06-27] MEDS ORDERED: eliquis PO (13:36)
[2018-06-27] MEDS ORDERED: LOSARTAN POTAS100 MG PO (13:36)
--- NOTE | 2018-06-27 14:05 | NUR ---
IV dc'd, cath intact and small dressing applied. Patient discharged home with written instructions and prescriptions. He verbalized understanding.
[2018-07-24] MEDS ORDERED: OMEPRAZOLE40 MG PO (09:47)
[2018-07-24] MEDS ORDERED: BACTRIM DS TAB1 EACH PO (09:48)
== END 2018-06-27 13:59 | disposition home or self-care (01) ==
LOC: ER 14:26 → ERHOLD 21:26 → IMCU 06-24 00:09
DX: I63.431 Cerebral infarction due to embolism of right posterior cerebral artery (principal); H53.8 Other visual disturbances; I10 Essential (primary) hypertension; E78.5 Hyperlipidemia, unspecified; Z96.652 Presence of left artificial knee joint; Z80.1 Family history of malignant neoplasm of trachea, bronchus and lung; Z82.49 Family history of ischemic heart disease and other diseases of the circulatory system
CPT/HCPCS: 36415 ×3; 70450; 70486; 70544; 70547; 70551; 80048; 80053; 80061; 82270; 82550 ×2; 82553 ×2; 83036; 84484 ×2; 85025 ×2; 85610; 85651 ×2; 85730; 86140 ×2; 87040; 92523; 93005; 93312; 93320; 93325; 93880; 96360; 97161; 99284; G0378 ×5; G8978; G8979; G8980; J1650 ×2; J1720; J2060; J2250; J2550; J2704; J7030 ×5; 93306; 93307

== ENCOUNTER → 2018-07-25 | Day surgery (SDC) | payer MEDICARE, OTHER ==
[2018-07-24 10:11] LABS: BASOPHILS % 0.4 % (0.0-1.0); EOSINOPHILS # (AUTO) 0.1 (0.0-0.4); EOSINOPHILS % 2.7 % (0.0-6.0); HEMATOCRIT 41.3 % (38.2-49.6); HEMOGLOBIN 13.9 g/dL (14.0-18.0); LYMPHOCYTES # (AUTO) 1.5 (1.0-3.2); LYMPHOCYTES % 30.3 % (18.0-39.1); MEAN CORPUSCULAR HEMOGLOBIN 31.4 pg (28-32); MEAN CORPUSCULAR HGB CONC 33.7 g/dL (31-35); MEAN CORPUSCULAR VOLUME 93.2 fL (81-99); MONOCYTES # (AUTO) 0.4 (0.2-0.8); MONOCYTES % 9.2 % (4.4-11.3); NEUTROPHILS # (AUTO) 2.7 (2.1-6.9); PLATELET COUNT 188 x10e3/uL (140-360); RED BLOOD COUNT 4.43 x10e6/uL (4.3-5.7); RED CELL DISTRIBUTION WIDTH 12.7 % (11.7-14.4)
[2018-07-24 11:05] LABS: BLOOD UREA NITROGEN 15 mg/dL (7-26); BUN/CREATININE RATIO 13 (6-25); CALCIUM 8.9 mg/dL (8.4-10.2); CARBON DIOXIDE 26 mmol/L (22-29); CHLORIDE 106 mmol/L (98-107); CREATININE, SERUM 1.14 mg/dL (0.72-1.25); EST GLOMERULAR FILTRATION RATE > 60 ML/MIN (60-); GLUCOSE 124 mg/dL (74-118); SODIUM 142 mmol/L (136-145)
--- NOTE | 2018-07-24 11:08 | Diagnostic Imaging Report ---
Frontal and lateral views of the chest - 4 images HISTORY: PER PROTOCOL, PRE ADMIT, preop for cyst removal COMPARISON: None available. DISCUSSION: Lungs: The lungs are well inflated. No evidence of a consolidative pneumonia or pulmonary alveolar edema. Pleura: No pleural effusion or pneumothorax. Heart and mediastinum: The cardiomediastinal silhouette appears unremarkable. Bones and soft tissues: Mild multilevel degenerative changes of the axial skeleton. Other: Diffuse scattered atherosclerotic vascular calcifications. IMPRESSION: No acute radiographic abnormality. Signed by: Dr. Alex Fuentes D.O., M.M.M. on 07/24/2018 11:04 AM
[~2018-07-25] MED LIST: ATORVASTATIN CA80 MG PO; BACTRIM DS TAB1 EACH PO; BUPIVACAINE 0.25%/EPI 30ML SDV INJ ONE; CEFAZOLIN SOD 1 GM VIAL ONE; DEXAMETHASONE SOD PHOS INJ 4 MG/ML VIAL ONE; DIOVAN80 MG PO; FENTANYL CITRATE/PF 100MCG/2 ML INJ ONE; GABAPENTIN100 MG PO; GABAPENTIN300 MG PO; KETOROLAC TROMETHAMINE 30 MG/ML VIAL ONE; LIDOCAINE HCL 2% LOCAL INJ 5 ML SDV VIAL INJ ONE; LOSARTAN POTAS100 MG PO; LOVASTATIN40 MG PO; MELOXICAM7.5 MG PO; MIDAZOLAM HCL 2 MG/2 ML VIAL ONE; NEOMYCIN/POLYMYX/BACITR OINT 0.9 GM PKT ONE; OMEPRAZOLE40 MG PO; ONDANSETRON HCL INJ 2MG/ML 2ML 2 MG/ML VIAL ONE; PROPOFOL IV EMULSION 10 MG/ML 20 ML VIAL ONE; SEVOFLURANE INHAL SOLN 250 ML PEN BTL ONE; eliquis PO
--- OUTSIDE RECORDS SUMMARY | 2018-07-25 06:28 | XMS REPORT | Clinical Summary ---
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 [address] Room Chronic maxillary sinusitis 06/20/2018 Hospital Computed Tomography Encounter Kota White MD Chronic maxillary sinusitis (Primary Dx) 06/18/2018 Outside Orders Central Scheduling Cyndi June MD 01/08/2018 Anesthesia Event Maylin Rickbharat [place] COLONOSCOPY,POLYPECTOMY 01/08/2018 Surgery Rick Carlisle 01/08/2018 Hospital Encounter Resource, [facility] Preadmit Phone 01/03/2018 Hospital Pre-Admission Testing Encounter after 07/24/2017 Social History Date Tobacco Use Types Packs/Day [...] 06/20/2018 Chronic maxillary IV CONTRAST 3:00 PM [employer] sinusitis REPORT OF PROCEDURE - 01/08/2018 ENDOSCOPY URL 10:56 AM CDT TISSUE EXAM AP Routine 01/08/2018 10:33 AM CDT COLONOSCOPY,POLYPECTOMY 01/08/2018 Screening for colon 10:00 AM CDT cancer after 07/24/2017 Results * CT Maxillofacial without IV Contrast (06/20/2018 3:00 PM [employer]) Narrative Performed At FINAL REPORT ScaleDB Examination: CT Face without Contrast History: Nasal [...] MD Report Verified Date/Time:06/23/2018 13:20:26 Reading Location: [place] [employer] Reading Room [address] [place] [address] Procedure Note Interface, External Ris In - 06/23/2018 1:22 PM [employer] FINAL REPORT Examination: CT Face without Contrast [...] Date/Time: 06/23/2018 13:20:26 Reading Location: [place] [employer] Reading Room [address] [place] [address] Performing Organization Address City/State/Zipcode Phone Number RIS * REPORT OF PROCEDURE - ENDOSCOPY URL (01/08/2018 10:56 AM CDT) Narrative Performed At * Tissue Exam (01/08/2018 10:33 AM CDT) Case Report Surgical Pathology [facility] Case: [id number] Authorizing Provider:Rick Carlisleected: 01/08/2018 1033 Ordering Location: [facility] ENDOSCOPY Received: 01/08/2018 1133 SERVICES Pathologist: Jennifer Calloway MD Specimens: A) - Polyp, Colon - Cecum B) - Polyp, Colon - Right/Ascending DIAGNOSIS A. LARGE BOWEL, CECUM, [facility] POLYPECTOMY: [facility] - TUBULAR ADENOMA B. COLON, RIGHT, POLYPECTOMY: - FECAL MATERIAL Signing Pathologist Direct Phone Line: [phone] CPT Code(s) [place]/ew [facility] [address] x2 [facility] CLINICAL HISTORY Screening for colon cancer [facility] SPECIMEN SOURCE A. Cecum colon polyp. B. Right [facility] ascending colon polyp [facility] GROSS DESCRIPTION Specimen is received in two [facility] containers of formalin both [facility] labeled with the patient's information. Specimen A: Labeled "cecum colon polyp" consists of two fragments of juárez tissue measuring 0.3 and 0.8 cm, submitted in A1. Specimen B: Labeled "right ascending colon polyp" consists of multiple fragments of debris with no distinct tissue seen grossly. The debris ranges from 0.1 to 0.6 cm, submitted in B1. CG/ew MICROSCOPIC DESCRIPTION A-B. No high-grade dysplasia [facility] or carcinoma is seen. [facility] Specimen Tissue - Polyp, Colon - Cecum Performing Organization Address City/State/Zipcode Phone Number [facility] [address] [place], [place] [id number] [facility] after 07/24/2017 Insurance Payer Benefit Subscriber ID Type Phone Address Plan / Group MEDICARE MEDICARE A xxxxxxxxxxx Medicare B MCR SUPPLEMENT/INDIVIDUAL AARP/UNITE xxxxxxxxxxx [employer] D HEALTHCARE
--- NOTE | 2018-07-25 10:25 | Operative Report ---
DATE OF PROCEDURE: July 25, 2018 PREOPERATIVE DIAGNOSIS: Recurrent left perineal cyst. POSTOPERATIVE DIAGNOSIS: Recurrent left perineal cyst. PROCEDURE PERFORMED: Excision of recurrent left perineal cyst. ANESTHESIA: General. ESTIMATED BLOOD LOSS: Minimal. DRAINS: None. COMPLICATIONS: None. INDICATIONS AND FINDINGS: The patient is a pleasant 68-year-old male who had undergone several months ago excision of a perineal cyst and recurrent infection. The patient now presents with a recurrence and intermittent swelling at the site of the previously excised cyst. INTRAOPERATIVE FINDINGS: The patient had a palpable induration cystic type of a mass located in the left upper perineum right at the base of the scrotum. This mass was about 1.5 cm x 0.5 cm. An elliptical incision was made and that area of skin along with the midline tissues and induration and presumably cyst was removed. DESCRIPTION OF PROCEDURE: With the patient lying on the operating table in the supine position and after administration of general endotracheal anesthesia, he was prepped and draped for excision of perineal recurrent cyst. The patient was placed in the lithotomy position and given a gram of Ancef. An elliptical incision was made directly over the palpable mass in a longitudinal fashion and the left upper perineum. The dissection was carried down with the ellipse of skin and dissection through the subcutaneous tissue until the palpable area was identified and excised. At this point, the cyst was not swollen nor was very prominent, but we removed what felt somewhat indurated in that location. Bleeding points if any were cauterized. The wound was irrigated and then closed in layers using 2-0 chromic for the soft tissues and the skin was closed using interrupted 3-0 silk vertical mattress. Infiltration was given of 0.25% Marcaine with epinephrine as a local block. The patient tolerated the procedure well and taken to the recovery room in stable condition. Job#: [id number] RI
[2018-07-25 10:45] VITALS: BP 127/72
== END | disposition home or self-care (01) ==
LOC: OR 06:25
PROVIDERS: ATTEND Surgery
DX: L72.8 Other follicular cysts of the skin and subcutaneous tissue (principal); H53.8 Other visual disturbances; I10 Essential (primary) hypertension; K21.9 Gastro-esophageal reflux disease without esophagitis; Z01.810 Encounter for preprocedural cardiovascular examination; Z01.812 Encounter for preprocedural laboratory examination; Z01.818 Encounter for other preprocedural examination; Z79.02 Long term (current) use of antithrombotics/antiplatelets; Z68.41 Body mass index [BMI] 40.0-44.9, adult; Z86.73 Personal history of transient ischemic attack (TIA), and cerebral infarction without residual deficits; Z96.659 Presence of unspecified artificial knee joint
CPT/HCPCS: 11422; 12041; 36415; 71046; 80048; 85025; 88304; 93005; J0690; J1100; J1885; J2001; J2250; J2405; J2704

== ENCOUNTER → 2019-01-28 | Day surgery (SDC) | payer MEDICARE, OTHER ==
[2019-01-27 13:09] LABS: BASOPHILS % 0.4 % (0.0-1.0); EOSINOPHILS # (AUTO) 0.2 (0.0-0.4); EOSINOPHILS % 4.4 % (0.0-6.0); HEMOGLOBIN 12.9 g/dL (14.0-18.0); LYMPHOCYTES # (AUTO) 1.4 (1.0-3.2); LYMPHOCYTES % 30.6 % (18.0-39.1); MEAN CORPUSCULAR HEMOGLOBIN 31.3 pg (28-32); MEAN CORPUSCULAR HGB CONC 33.1 g/dL (31-35); MEAN CORPUSCULAR VOLUME 94.7 fL (81-99); MONOCYTES # (AUTO) 0.5 (0.2-0.8); MONOCYTES % 10.4 % (4.4-11.3); NEUTROPHILS # (AUTO) 2.4 (2.1-6.9); NEUTROPHILS % 53.8 % (38.7-80.0); PLATELET COUNT 208 x10e3/uL (140-360); RED BLOOD COUNT 4.12 x10e6/uL (4.3-5.7); RED CELL DISTRIBUTION WIDTH 12.4 % (11.7-14.4)
[2019-01-27 13:29] LABS: ANION GAP 14.4 mmol/L (8-16); BLOOD UREA NITROGEN 15 mg/dL (7-26); BUN/CREATININE RATIO 15 (6-25); CALCIUM 9.2 mg/dL (8.4-10.2); CARBON DIOXIDE 27 mmol/L (22-29); CHLORIDE 104 mmol/L (98-107); CREATININE, SERUM 0.97 mg/dL (0.72-1.25); EST GLOMERULAR FILTRATION RATE > 60 ML/MIN (60-); GLUCOSE 91 mg/dL (74-118); POTASSIUM 4.4 mmol/L (3.5-5.1); SODIUM 141 mmol/L (136-145)
[~2019-01-28] MED LIST changes: -CEFAZOLIN SOD 1 GM VIAL ONE; +LIDOCAINE HCL 1% LOCAL INJ 20 ML VIAL ONE; +NEOSTIGMINE 1 MG/ML 10ML VIAL ONE
--- OUTSIDE RECORDS SUMMARY | 2019-01-28 08:57 | XMS REPORT | Clinical Summary ---
Author Author [facility] Address Unknown Phone Unavailable Care Team Providers Care Chain Offbearer Name Role Phone Kota White MD PCP Unavailable Allergies No Known Allergies Medications End Date [...] Kota White MD 1, [facility] [address] Room Chronic maxillary sinusitis 06/20/2018 Hospital Computed Tomography Encounter Kota White MD Chronic maxillary sinusitis (Primary Dx) 06/18/2018 Outside Orders Central Scheduling after 01/27/2018 Social History Date Tobacco Use Types Packs/Day [...] travel history available. Last Filed Vital Signs Not on file Plan of Treatment Not on file Procedures Comments Procedure Name Priority Date/Time Associated Diagnosis CT MAXILLOFACIAL WITHOUT Routine 06/20/2018 Chronic maxillary IV CONTRAST 3:00 PM [employer] sinusitis after 01/27/2018 Results * CT Maxillofacial without IV Contrast (06/20/2018 3:00 PM [employer]) Specimen Narrative Performed At FINAL REPORT [facility] Examination: CT Face without Contrast History: Nasal [...] MD Report Verified Date/Time:06/23/2018 13:20:26 Reading Location: [facility] Reading Room [address] [place] [address] Procedure Note Interface, External Ris In - 06/23/2018 1:22 PM [employer] FINAL REPORT Examination: CT Face without Contrast [...] Report Verified Date/Time: 06/23/2018 13:20:26 Reading Location: [facility] Reading Room [address] [place] [address] Performing Organization Address City/State/Zipcode Phone Number GE RIS after 01/27/2018 Insurance Payer Benefit Subscriber ID Type Phone Address Plan / Group MEDICARE MEDICARE A xxxxxxxxxxx Medicare B MCR SUPPLEMENT/INDIVIDUAL AARP/UNITE xxxxxxxxxxx [facility] D HEALTHCARE
[2019-01-28 12:55] VITALS: BP 130/89
--- NOTE | 2019-01-28 13:00 | Operative Report ---
DATE OF PROCEDURE: 01/28/2019 SURGEON: Gal Gibbs MD PREOPERATIVE DIAGNOSIS: Recurrent infected perineal cyst. POSTOPERATIVE DIAGNOSIS: Recurrent infected perineal cyst. PROCEDURE PERFORMED: Excision of recurrent infected perineal cyst. ANESTHESIA: General. ESTIMATED BLOOD LOSS: Minimal. DRAINS: None. COMPLICATIONS: None. INDICATION AND FINDINGS: A 68-year-old pleasant male, status post excision of a previously drained elsewhere infected cyst of the perineal region, now presents with recurrence and now is admitted for excision. The patient understood preoperatively that there were no guarantees that the cyst would disappear, but that I would do my best. INTRAOPERATIVE FINDINGS: The patient has some palpable mass effect located in the subcutaneous tissues of the left perineal region in the area of the junction between the base of the left hemiscrotum and the upper inner thigh. This entire area was excised and then closed. DESCRIPTION OF THE PROCEDURE: With the patient lying on the operative table in the supine position after administration of general anesthesia, he was DuraPrep'd and draped and prepped for excision of the perineal cyst. The palpable cyst in that location was grasped with Allis clamp and then a wide incision was made, deepened through the skin and the subcutaneous tissue and the superficial fascia. The entire specimen was sent. Bleeding points were cauterized. Then, the wound was closed in 2 layers using 3 chromic for the soft tissues and the skin was closed using 3-0 silk. Sterile dressing was applied. Scrotal support was given. The patient was taken to recovery room in stable condition. MD FELICIA Nassar/MODL /[id number]
== END | disposition home or self-care (01) ==
LOC: OR 08:48
PROVIDERS: ATTEND Surgery
DX: L72.0 Epidermal cyst (principal); R00.1 Bradycardia, unspecified; I69.398 Other sequelae of cerebral infarction; H53.9 Unspecified visual disturbance; K21.9 Gastro-esophageal reflux disease without esophagitis; E78.6 Lipoprotein deficiency; M54.30 Sciatica, unspecified side; M13.819 Other specified arthritis, unspecified shoulder; Z01.810 Encounter for preprocedural cardiovascular examination; Z01.812 Encounter for preprocedural laboratory examination; Z79.02 Long term (current) use of antithrombotics/antiplatelets
CPT/HCPCS: 11426; 12042; 36415; 80048; 85025; 88304; 93005; J1100; J1885; J2001; J2250; J2405; J2704; J2710; J3010

== ENCOUNTER → 2020-11-25 | Day surgery (SDC) | payer MEDICARE, OTHER ==
[2020-11-22 13:10] LABS: BASOPHILS % 0.4 % (0.0-1.0); EOSINOPHILS # (AUTO) 0.2 (0.0-0.4); EOSINOPHILS % 2.7 % (0.0-6.0); HEMATOCRIT 40.4 % (38.2-49.6); HEMOGLOBIN 13.1 g/dL (14.0-18.0); LYMPHOCYTES # (AUTO) 1.6 (1.0-3.2); LYMPHOCYTES % 29.7 % (18.0-39.1); MEAN CORPUSCULAR HGB CONC 32.4 g/dL (31-35); MEAN CORPUSCULAR VOLUME 95.7 fL (81-99); MONOCYTES # (AUTO) 0.5 (0.2-0.8); MONOCYTES % 9.3 % (4.4-11.3); NEUTROPHILS # (AUTO) 3.1 (2.1-6.9); NEUTROPHILS % 57.4 % (38.7-80.0); PLATELET COUNT 216 x10e3/uL (140-360); RED BLOOD COUNT 4.22 x10e6/uL (4.3-5.7); RED CELL DISTRIBUTION WIDTH 12.5 % (11.7-14.4)
[~2020-11-25] MED LIST changes: -BUPIVACAINE 0.25%/EPI 30ML SDV INJ ONE; -DEXAMETHASONE SOD PHOS INJ 4 MG/ML VIAL ONE; -KETOROLAC TROMETHAMINE 30 MG/ML VIAL ONE; -LIDOCAINE HCL 1% LOCAL INJ 20 ML VIAL ONE; -NEOMYCIN/POLYMYX/BACITR OINT 0.9 GM PKT ONE; -NEOSTIGMINE 1 MG/ML 10ML VIAL ONE; -ONDANSETRON HCL INJ 2MG/ML 2ML 2 MG/ML VIAL ONE; -SEVOFLURANE INHAL SOLN 250 ML PEN BTL ONE; +VIT D3 PO
[2020-11-25 13:55] VITALS: BP 127/72
== END | disposition home or self-care (01) ==
LOC: OR 10:57
PROVIDERS: ATTEND Internal Medicine Gastroenterology
DX: Z12.11 Encounter for screening for malignant neoplasm of colon (principal); K57.30 Diverticulosis of large intestine without perforation or abscess without bleeding; R19.5 Other fecal abnormalities; K64.8 Other hemorrhoids; K21.9 Gastro-esophageal reflux disease without esophagitis; H54.7 Unspecified visual loss; I10 Essential (primary) hypertension; E78.00 Pure hypercholesterolemia, unspecified; M54.30 Sciatica, unspecified side; Z01.810 Encounter for preprocedural cardiovascular examination; Z01.812 Encounter for preprocedural laboratory examination; Z20.822 Contact with and (suspected) exposure to COVID-19; Z79.02 Long term (current) use of antithrombotics/antiplatelets; Z68.31 Body mass index [BMI] 31.0-31.9, adult; Z86.73 Personal history of transient ischemic attack (TIA), and cerebral infarction without residual deficits
CPT/HCPCS: 36415; 85025; 93005; G0121; J2001; J2250; J2704; J3010; U0002; 45378

== ENCOUNTER → 2020-12-29 | Outpatient (CLI) | payer MEDICARE, OTHER ==
[~2020-12-29] MED LIST changes: -FENTANYL CITRATE/PF 100MCG/2 ML INJ ONE; -LIDOCAINE HCL 2% LOCAL INJ 5 ML SDV VIAL INJ ONE; +LORAZEPAM INJ 2 MG/ML VIAL ONE; -MIDAZOLAM HCL 2 MG/2 ML VIAL ONE; -PROPOFOL IV EMULSION 10 MG/ML 20 ML VIAL ONE
== END ==
LOC: MRI 12:58
DX: M54.42 Lumbago with sciatica, left side (principal); M54.41 Lumbago with sciatica, right side
CPT/HCPCS: 72148; 73521; 73630; J2060

== ENCOUNTER → 2021-01-19 | Day surgery (SDC) | payer MEDICARE, OTHER ==
[2021-01-16 10:55] LABS: BASOPHILS % 0.6 % (0.0-1.0); EOSINOPHILS # (AUTO) 0.1 (0.0-0.4); EOSINOPHILS % 2.6 % (0.0-6.0); HEMATOCRIT 41.8 % (38.2-49.6); HEMOGLOBIN 13.4 g/dL (14.0-18.0); LYMPHOCYTES # (AUTO) 1.7 (1.0-3.2); LYMPHOCYTES % 30.8 % (18.0-39.1); MEAN CORPUSCULAR HGB CONC 32.1 g/dL (31-35); MEAN CORPUSCULAR VOLUME 96.8 fL (81-99); MONOCYTES # (AUTO) 0.5 (0.2-0.8); MONOCYTES % 9.1 % (4.4-11.3); NEUTROPHILS % 56.3 % (38.7-80.0); PLATELET COUNT 244 x10e3/uL (140-360); RED BLOOD COUNT 4.32 x10e6/uL (4.3-5.7); RED CELL DISTRIBUTION WIDTH 12.8 % (11.7-14.4)
[~2021-01-19] MED LIST changes: +IOPAMIDOL 200 MG/ML 20 ML VIAL IT ONE; +LIDOCAINE HCL 1% 30ML-PF VIAL ONE; +LIDOCAINE HCL 2% LOCAL INJ 5 ML SDV VIAL INJ ONE; -LORAZEPAM INJ 2 MG/ML VIAL ONE; +PROPOFOL IV EMULSION 10 MG/ML 20 ML VIAL ONE; +TRIAMCINOLONE ACET 40 MG/ML VIAL ONE
[2021-01-19 10:36] VITALS: BP 132/76
== END | disposition home or self-care (01) ==
LOC: OR 06:17
PROVIDERS: ATTEND Physical Medicine & Rehabilitation Pain Medicine
DX: M47.896 Other spondylosis, lumbar region (principal); Z01.812 Encounter for preprocedural laboratory examination; Z20.822 Contact with and (suspected) exposure to COVID-19; K21.9 Gastro-esophageal reflux disease without esophagitis; I10 Essential (primary) hypertension; Z86.73 Personal history of transient ischemic attack (TIA), and cerebral infarction without residual deficits; M54.16 Radiculopathy, lumbar region
CPT/HCPCS: 36415; 64493; 64494; 85025; J2001 ×2; J3301; Q9967; U0002; 77003

== ENCOUNTER → 2021-05-11 | Day surgery (SDC) | payer MEDICARE, OTHER ==
[2021-05-10 10:40] LABS: BASOPHILS % 0.5 % (0.0-1.0); EOSINOPHILS # (AUTO) 0.2 (0.0-0.4); HEMATOCRIT 44.8 % (38.2-49.6); HEMOGLOBIN 14.4 g/dL (14.0-18.0); LYMPHOCYTES # (AUTO) 1.6 (1.0-3.2); LYMPHOCYTES % 25.5 % (18.0-39.1); MEAN CORPUSCULAR HEMOGLOBIN 30.6 pg (28-32); MEAN CORPUSCULAR HGB CONC 32.1 g/dL (31-35); MEAN CORPUSCULAR VOLUME 95.1 fL (81-99); MONOCYTES # (AUTO) 0.7 (0.2-0.8); MONOCYTES % 10.2 % (4.4-11.3); NEUTROPHILS # (AUTO) 3.8 (2.1-6.9); NEUTROPHILS % 60.3 % (38.7-80.0); PLATELET COUNT 260 x10e3/uL (140-360); RED BLOOD COUNT 4.71 x10e6/uL (4.3-5.7); RED CELL DISTRIBUTION WIDTH 11.9 % (11.7-14.4)
[~2021-05-11] MED LIST changes: +BUPIVACAINE 0.25% 30ML SDV ONE; +DEXAMETHASONE SOD PHOS 10 MG/1 ML VIAL ONE; +FENTANYL CITRATE/PF 100MCG/2 ML INJ ONE; -LIDOCAINE HCL 2% LOCAL INJ 5 ML SDV VIAL INJ ONE; +MIDAZOLAM HCL 2 MG/2 ML VIAL ONE; +POVIDONE IODINE 0.05% 0.05 % ML PO ONE; -TRIAMCINOLONE ACET 40 MG/ML VIAL ONE
[2021-05-11 09:00] VITALS: BP 115/70
== END | disposition home or self-care (01) ==
LOC: OR 07:08
PROVIDERS: ATTEND Physical Medicine & Rehabilitation Pain Medicine
DX: M54.16 Radiculopathy, lumbar region (principal); M47.896 Other spondylosis, lumbar region; M46.1 Sacroiliitis, not elsewhere classified; M25.511 Pain in right shoulder; R93.7 Abnormal findings on diagnostic imaging of other parts of musculoskeletal system; I10 Essential (primary) hypertension; E78.5 Hyperlipidemia, unspecified; K21.9 Gastro-esophageal reflux disease without esophagitis; I69.398 Other sequelae of cerebral infarction; H53.8 Other visual disturbances; Z01.810 Encounter for preprocedural cardiovascular examination; Z01.812 Encounter for preprocedural laboratory examination; Z20.822 Contact with and (suspected) exposure to COVID-19; Z79.02 Long term (current) use of antithrombotics/antiplatelets; Z79.899 Other long term (current) drug therapy
CPT/HCPCS: 36415; 64483; 64484 ×3; 85025; 93005; J1100; J2001; J2250; J2704; J3010; Q9967; U0002; 77003

== ENCOUNTER 2021-11-22 09:43 | Emergency (ER) | payer MEDICARE, OTHER ==
[~2021-11-22] VITALS: Ht 195.6 cm; Wt 114.3 kg
[~2021-11-22 09:43] MED LIST changes: -BUPIVACAINE 0.25% 30ML SDV ONE; -DEXAMETHASONE SOD PHOS 10 MG/1 ML VIAL ONE; -FENTANYL CITRATE/PF 100MCG/2 ML INJ ONE; -IOPAMIDOL 200 MG/ML 20 ML VIAL IT ONE; -LIDOCAINE HCL 1% 30ML-PF VIAL ONE; -MIDAZOLAM HCL 2 MG/2 ML VIAL ONE; -POVIDONE IODINE 0.05% 0.05 % ML PO ONE; -PROPOFOL IV EMULSION 10 MG/ML 20 ML VIAL ONE
[2021-11-22 10:09] LABS: BASOPHILS % 0.4 % (0.0-1.0); EOSINOPHILS # (AUTO) 0.2 (0.0-0.4); EOSINOPHILS % 3.2 % (0.0-6.0); HEMATOCRIT 46.8 % (38.2-49.6); HEMOGLOBIN 15.3 g/dL (14.0-18.0); LYMPHOCYTES # (AUTO) 1.4 (1.0-3.2); LYMPHOCYTES % 28.5 % (18.0-39.1); MEAN CORPUSCULAR HEMOGLOBIN 31.5 pg (28-32); MEAN CORPUSCULAR HGB CONC 32.7 g/dL (31-35); MEAN CORPUSCULAR VOLUME 96.5 fL (81-99); MONOCYTES # (AUTO) 0.4 (0.2-0.8); MONOCYTES % 7.8 % (4.4-11.3); NEUTROPHILS % 59.9 % (38.7-80.0); PLATELET COUNT 211 x10e3/uL (140-360); RED BLOOD COUNT 4.85 x10e6/uL (4.3-5.7); RED CELL DISTRIBUTION WIDTH 12.3 % (11.7-14.4)
[2021-11-22 10:35] LABS: ALBUMIN 3.8 g/dL (3.5-5.0); ALBUMIN/GLOBULIN RATIO 1.2 (0.8-2.0); ANION GAP 13.9 mmol/L (8-16); CALCIUM 8.9 mg/dL (8.4-10.2); CREATININE, SERUM 1.07 mg/dL (0.72-1.25); POTASSIUM 3.9 mmol/L (3.5-5.1)
[2021-11-22 10:36] LABS: LIPASE 39 U/L (8-78)
[2021-11-22] MEDS ORDERED: ASPIRIN 81 MG CHEW TAB PO ONE (11:00)
[2021-11-22 11:08] VITALS: BP 126/68
== END 2021-11-22 11:07 | disposition home or self-care (01) ==
LOC: ER 09:50
DX: R07.9 Chest pain, unspecified (principal); I10 Essential (primary) hypertension; E78.5 Hyperlipidemia, unspecified; Z96.652 Presence of left artificial knee joint
CPT/HCPCS: 36415; 71045; 80053; 83690; 84484; 85025; 93005; 99284; C9113

== ENCOUNTER 2022-04-18 10:55 | Emergency (ER) | payer MEDICARE, OTHER ==
[~2022-04-18] VITALS: Ht 195.6 cm; Wt 114.3 kg
[2022-04-18] MEDS ORDERED: ONDANSETRON HCL INJ 2MG/ML 2ML 2 MG/ML VIAL IV STA (11:11)
[2022-04-18] MEDS ORDERED: Morphine 4mg INJECTION 4 MG/ML INJ IV STA (11:11)
[2022-04-18] MEDS ORDERED: SODIUM CHLORIDE 0.9% 1000ML 1,000 ML IV STA (11:11)
[2022-04-18] MEDS ORDERED: DIATRIZOATE MEGL/DIATRIZOA SOD 30 ML BTL PO ONE (11:33)
[2022-04-18 11:51] LABS: BASOPHILS % 0.4 % (0.0-1.0); EOSINOPHILS % 1.1 % (0.0-6.0); HEMATOCRIT 46.6 % (38.2-49.6); HEMOGLOBIN 14.5 g/dL (14.0-18.0); LYMPHOCYTES % 35.4 % (18.0-39.1); MEAN CORPUSCULAR HEMOGLOBIN 30.9 pg (28-32); MEAN CORPUSCULAR HGB CONC 31.1 g/dL (31-35); MEAN CORPUSCULAR VOLUME 99.4 fL (81-99); MONOCYTES # (AUTO) 0.6 (0.2-0.8); MONOCYTES % 21.8 % (4.4-11.3); NEUTROPHILS # (AUTO) 1.1 (2.1-6.9); NEUTROPHILS % 40.6 % (38.7-80.0); PLATELET COUNT 172 x10e3/uL (140-360); RED BLOOD COUNT 4.69 x10e6/uL (4.3-5.7); RED CELL DISTRIBUTION WIDTH 12.4 % (11.7-14.4)
[2022-04-18 11:59] LABS: CLARITY,URINE CLEAR (CLEAR); COLOR,URINE YELLOW (YELLOW); KETONES,URINE NEGATIVE (NEGATIVE); LEUKOCYTE ESTERASE ,URINE NEGATIVE (NEGATIVE); NITRITE,URINE NEGATIVE (NEGATIVE); PROTEIN,URINE DIPSTICK NEGATIVE (NEGATIVE); URINE UROBILINOGEN 0.2 mg/dL (0.2 - 1)
[2022-04-18 12:15] LABS: ALBUMIN/GLOBULIN RATIO 1.3 (0.8-2.0); ANION GAP 15.1 mmol/L (8-16); CALCIUM 8.9 mg/dL (8.4-10.2); CREATININE, SERUM 1.17 mg/dL (0.72-1.25); POTASSIUM 4.1 mmol/L (3.5-5.1)
[2022-04-18 12:16] LABS: BACTERIA,URINE FEW /HPF; EPITHELIAL CELLS,URINE RARE /LPF; RBC,URINE 0-5 /HPF (0-5); TRANSITIONAL EPI CELLS,URINE RARE; WBC,URINE (MAN) 0-5 /HPF (0-5)
[2022-04-18] MEDS ORDERED: IOPAMIDOL 370 MG/ML 100 ML INFUS..BTL INJ ONE (13:02)
[2022-04-18] MEDS ORDERED: AUGMENTIN 500-1 EACH PO (14:14)
[2022-04-18] MEDS ORDERED: ONDANSETRON ODT4 MG PO (14:14)
[2022-04-18] MEDS ORDERED: ACETAMINOPHEN-1 EAC4 PO (14:14)
== END 2022-04-18 15:16 | disposition home or self-care (01) ==
LOC: ER 11:15
DX: R50.9 Fever, unspecified (principal); K57.90 Diverticulosis of intestine, part unspecified, without perforation or abscess without bleeding; R10.9 Unspecified abdominal pain; R11.2 Nausea with vomiting, unspecified; I10 Essential (primary) hypertension; E78.5 Hyperlipidemia, unspecified; G89.29 Other chronic pain; Z20.822 Contact with and (suspected) exposure to COVID-19
CPT/HCPCS: 36415; 74177; 80053; 81001; 83690; 85025; 87400; 99284; J2270; J2405; J2543; J7030; Q9963; Q9967; U0002

== ENCOUNTER 2022-04-19 09:20 | Emergency (ER) | payer MEDICARE, OTHER ==
[~2022-04-19] VITALS: Ht 195.6 cm; Wt 114.3 kg
[~2022-04-19 09:20] MED LIST changes: +ACETAMINOPHEN-1 EAC4 PO; +AUGMENTIN 500-1 EACH PO; +ONDANSETRON ODT4 MG PO
[2022-04-19] MEDS ORDERED: ONDANSETRON HCL INJ 2MG/ML 2ML 2 MG/ML VIAL IV STA (09:26)
[2022-04-19] MEDS ORDERED: SODIUM CHLORIDE 0.9% 1000ML 1,000 ML IV STA (09:26)
[2022-04-19] MEDS ORDERED: Morphine 4mg INJECTION 4 MG/ML INJ IV ONE (10:00)
[2022-04-19 10:18] LABS: EOSINOPHILS # (AUTO) 0.1 (0.0-0.4); EOSINOPHILS % 1.8 % (0.0-6.0); HEMATOCRIT 44.9 % (38.2-49.6); HEMOGLOBIN 14.2 g/dL (14.0-18.0); LYMPHOCYTES # (AUTO) 0.9 (1.0-3.2); LYMPHOCYTES % 30.5 % (18.0-39.1); MEAN CORPUSCULAR HEMOGLOBIN 31.6 pg (28-32); MEAN CORPUSCULAR HGB CONC 31.6 g/dL (31-35); MONOCYTES # (AUTO) 0.3 (0.2-0.8); MONOCYTES % 11.7 % (4.4-11.3); NEUTROPHILS # (AUTO) 1.6 (2.1-6.9); NEUTROPHILS % 55.3 % (38.7-80.0); PLATELET COUNT 164 x10e3/uL (140-360); RED BLOOD COUNT 4.49 x10e6/uL (4.3-5.7); RED CELL DISTRIBUTION WIDTH 12.4 % (11.7-14.4)
[2022-04-19 10:39] LABS: ALBUMIN 3.9 g/dL (3.5-5.0); ALBUMIN/GLOBULIN RATIO 1.3 (0.8-2.0); ANION GAP 12.6 mmol/L (8-16); CALCIUM 8.6 mg/dL (8.4-10.2); CREATININE, SERUM 1.05 mg/dL (0.72-1.25); POTASSIUM 3.6 mmol/L (3.5-5.1)
[2022-04-19] MEDS ORDERED: IOPAMIDOL 370 MG/ML 100 ML INFUS..BTL INJ ONE (10:39)
[2022-04-19] MEDS ORDERED: SODIUM CHLORIDE 0.9% 100 ML ONE (10:39)
== END 2022-04-19 11:38 | disposition home or self-care (01) ==
LOC: ER 09:29
DX: R10.11 Right upper quadrant pain (principal); G89.29 Other chronic pain; I10 Essential (primary) hypertension; E78.5 Hyperlipidemia, unspecified; Z87.19 Personal history of other diseases of the digestive system
CPT/HCPCS: 36415; 74174; 80053; 85025; 99283; J7050; Q9967

== ENCOUNTER 2022-10-05 07:31 | Emergency (ER) | payer MEDICARE, OTHER ==
[~2022-10-05] VITALS: Ht 195.6 cm; Wt 114.3 kg
[2022-10-05] MEDS ORDERED: DONNATAL/LIDOCAINE/MAALOX 30 ML SUSP PO STA (07:53)
[2022-10-05 08:07] LABS: BASOPHILS % 0.5 % (0.0-1.0); EOSINOPHILS # (AUTO) 0.4 (0.0-0.4); EOSINOPHILS % 6.7 % (0.0-6.0); HEMATOCRIT 43.9 % (38.2-49.6); HEMOGLOBIN 14.4 g/dL (14.0-18.0); LYMPHOCYTES # (AUTO) 1.6 (1.0-3.2); LYMPHOCYTES % 28.6 % (18.0-39.1); MEAN CORPUSCULAR HEMOGLOBIN 31.5 pg (28-32); MEAN CORPUSCULAR HGB CONC 32.8 g/dL (31-35); MEAN CORPUSCULAR VOLUME 96.1 fL (81-99); MONOCYTES # (AUTO) 0.6 (0.2-0.8); MONOCYTES % 10.5 % (4.4-11.3); NEUTROPHILS % 53.3 % (38.7-80.0); PLATELET COUNT 201 x10e3/uL (140-360); RED BLOOD COUNT 4.57 x10e6/uL (4.3-5.7); RED CELL DISTRIBUTION WIDTH 12.1 % (11.7-14.4)
[2022-10-05 08:25] LABS: ALBUMIN/GLOBULIN RATIO 1.2 (0.8-2.0); ANION GAP 16.2 mmol/L (8-16); CALCIUM 9.1 mg/dL (8.4-10.2); CREATININE, SERUM 0.88 mg/dL (0.72-1.25); POTASSIUM 4.2 mmol/L (3.5-5.1)
[2022-10-05 08:33] LABS: LIPASE 33 U/L (8-78)
== END 2022-10-05 09:23 | disposition home or self-care (01) ==
LOC: ER 07:36
DX: R07.89 Other chest pain (principal); I10 Essential (primary) hypertension; E78.5 Hyperlipidemia, unspecified; Z86.73 Personal history of transient ischemic attack (TIA), and cerebral infarction without residual deficits; Z87.19 Personal history of other diseases of the digestive system; Z96.652 Presence of left artificial knee joint
CPT/HCPCS: 36415; 71045; 80053; 83690; 84484; 85025; 93005; 99284

== ENCOUNTER 2023-04-27 15:08 | Emergency (ER) | payer MEDICARE, OTHER ==
[~2023-04-27] VITALS: Ht 195.6 cm; Wt 114.3 kg
[2023-04-27 15:36] LABS: BASOPHILS % 0.5 % (0.0-1.0); EOSINOPHILS # (AUTO) 0.2 (0.0-0.4); EOSINOPHILS % 2.7 % (0.0-6.0); HEMATOCRIT 46.1 % (38.2-49.6); HEMOGLOBIN 15.3 g/dL (14.0-18.0); LYMPHOCYTES % 29.8 % (18.0-39.1); MEAN CORPUSCULAR HEMOGLOBIN 31.4 pg (28-32); MEAN CORPUSCULAR HGB CONC 33.2 g/dL (31-35); MEAN CORPUSCULAR VOLUME 94.7 fL (81-99); MONOCYTES # (AUTO) 0.6 (0.2-0.8); MONOCYTES % 8.9 % (4.4-11.3); NEUTROPHILS # (AUTO) 3.8 (2.1-6.9); NEUTROPHILS % 57.6 % (38.7-80.0); PLATELET COUNT 254 x10e3/uL (140-360); RED BLOOD COUNT 4.87 x10e6/uL (4.3-5.7); RED CELL DISTRIBUTION WIDTH 11.8 % (11.7-14.4); WHITE BLOOD COUNT 6.55 x10e3/uL (4.8-10.8)
[2023-04-27 15:53] LABS: CLARITY,URINE CLOUDY (CLEAR); COLOR,URINE ORANGE (YELLOW)
[2023-04-27 15:54] LABS: KETONES,URINE TRACE (NEGATIVE); LEUKOCYTE ESTERASE ,URINE NEGATIVE (NEGATIVE); NITRITE,URINE NEGATIVE (NEGATIVE); PROTEIN,URINE DIPSTICK 2+ (NEGATIVE); URINE UROBILINOGEN 1 mg/dL (0.2 - 1)
[2023-04-27 15:58] LABS: ALBUMIN 4.2 g/dL (3.5-5.0); ALBUMIN/GLOBULIN RATIO 1.3 (0.8-2.0); ANION GAP 13.8 mmol/L (8-16); CALCIUM 9.3 mg/dL (8.4-10.2); CREATININE, SERUM 1.05 mg/dL (0.72-1.25); POTASSIUM 3.8 mmol/L (3.5-5.1)
[2023-04-27 16:30] LABS: BACTERIA,URINE MANY /HPF; EPITHELIAL CELLS,URINE FEW /LPF; RBC,URINE >50 /HPF (0-5); WBC,URINE (MAN) 0-5 /HPF (0-5)
[2023-04-27] MEDS ORDERED: IOPAMIDOL 370 MG/ML 100 ML INFUS..BTL INJ ONE ×2 (16:43→16:45)
[2023-04-27] MEDS ORDERED: SODIUM CHLORIDE 0.9% 250ML 250 ML ONE (16:45)
[2023-04-27 17:30] VITALS: O2SAT 99
[2023-04-27] MEDS ORDERED: ULTRAM 50MG50 MG PO (18:29)
[2023-04-27] MEDS ORDERED: CIPRO500 MG PO (18:29)
[2023-04-27] MEDS ORDERED: ONDANSETRON ODT4 MG SL (18:29)
[2023-04-27] MEDS ORDERED: FLOMAX0.4 MG PO (18:29)
== END 2023-04-27 18:43 | disposition home or self-care (01) ==
LOC: ER 15:13
DX: R31.9 Hematuria, unspecified (principal); N20.1 Calculus of ureter; N40.0 Benign prostatic hyperplasia without lower urinary tract symptoms; I10 Essential (primary) hypertension; E78.5 Hyperlipidemia, unspecified; Z86.73 Personal history of transient ischemic attack (TIA), and cerebral infarction without residual deficits
CPT/HCPCS: 36415; 74178; 80053; 81001; 85025; 99284; J7050; Q9967